=== PATIENT | female | born 1985 | race Caucasian/White ===

== ENCOUNTER 2017-10-25 17:54 | Outpatient (CLI) | payer OTHER ==
[2017-10-25] MEDS ORDERED: PRENATAL 19 TA1 EACH PO (19:41)
[2017-10-25] MEDS ORDERED: FOLIC ACID0.8 MG PO (19:42)
[2017-10-25] MEDS ORDERED: SYNTHROID137 MCG PO (19:43)
== END 2017-10-26 16:41 | disposition home or self-care (01) ==
LOC: OBS/DEL 17:54
DX: O26.893 Other specified pregnancy related conditions, third trimester (principal); M54.5 Low back pain

== ENCOUNTER 2018-01-28 06:39 | Inpatient (IN) | payer OTHER ==
[~2018-01-28] VITALS: Ht 154.9 cm; Wt 82.6 kg
[~2018-01-28 06:39] MED LIST: FOLIC ACID0.8 MG PO; PRENATAL 19 TA1 EACH PO; SYNTHROID137 MCG PO
== END 2018-01-30 15:07 | disposition home or self-care (01) | DRG 775 ==
LOC: SURG-SUITE 06:39 → LDR 06:39 → SURG-SUITE 16:18
PROC: 10E0XZZ Delivery of Products of Conception, External Approach (ICD-10-PCS; principal; 2018-01-28)
PROC: 4A1HXCZ Monitoring of Products of Conception, Cardiac Rate, External Approach (ICD-10-PCS; 2018-01-28)
DX: O80 Encounter for full-term uncomplicated delivery (principal); Z3A.38 38 weeks gestation of pregnancy; Z37.0 Single live birth

== ENCOUNTER 2018-05-01 13:57 | Emergency (ER) | payer OTHER ==
[~2018-05-01] VITALS: Ht 157.5 cm; Wt 74.8 kg
== END 2018-05-01 18:57 | disposition home or self-care (01) ==
LOC: ER 13:57
DX: M54.5 Low back pain (principal)